=== PATIENT | male | born 1965 | race Two or more races ===

== ENCOUNTER 2017-12-09 11:06 | Inpatient (IN) | payer OTHER ==
[~2017-12-09] VITALS: Ht 167.6 cm; Wt 115.0 kg
[2017-12-09] MEDS ORDERED: SODIUM CHLORIDE 0.9% 1,000 ML IV ONE (11:32)
[2017-12-09] MEDS ORDERED: ONDANSETRON 2MG/ML, 2ML ONE ×2 (11:43→15:02)
[2017-12-09] MEDS ORDERED: HYDROmorphone 2 MG/ML, 1ML ONE ×5 (11:43→16:13)
[2017-12-09] MEDS: HYDROmorphone 1 MG/ML, 1ML IVPush PRN ×4 (11:49→16:13)
[2017-12-09 11:56] LABS: BASOPHILS # (AUTO) 0.03 x10^3/uL (0-0.1); BASOPHILS % (AUTO) 0 % (0-1); EOSINOPHILS # (AUTO) 0.02 x10^3/uL (0-0.4); EOSINOPHILS % (AUTO) 0 % (1-7); LYMPHOCYTES # (AUTO) 0.97 x10^3/uL (1-3.4); LYMPHOCYTES % (AUTO) 6 % (22-44); MD NO; MEAN CORPUSCULAR HEMOGLOBIN 33.9 pg (27.5-34.5); MEAN CORPUSCULAR HGB CONC 34.3 g/dL (33.2-36.2); MEAN CORPUSCULAR VOLUME 98.9 fL (81-97); MEAN PLATELET VOLUME 10.2 fL (7.4-10.4); MONOCYTES # (AUTO) 1.16 x10^3/uL (0.2-0.8); MONOCYTES % (AUTO) 7 % (2-9); NEUTROPHILS # (AUTO) 15.07 x10^3/uL (1.8-6.8); NEUTROPHILS % (AUTO) 87 % (42-75); PLATELET COUNT 154 x10^3/uL (130-400); RED BLOOD COUNT 4.93 x10^6/uL (4.38-5.82)
[2017-12-09] MEDS ORDERED: SODIUM CHLORIDE FLUSH 10ML SYR IVF ONE (12:00)
[2017-12-09] MEDS ORDERED: SODIUM CHLORIDE 0.9% 1,000ML IVBOLUS ONE (12:00)
[2017-12-09] MEDS ORDERED: ONDANSETRON 2MG/ML, 2ML IVPush ONE ×2 (12:00→15:30)
[2017-12-09 12:10] LABS: ALANINE AMINOTRANSFERASE 35 U/L (12-78); ALBUMIN 3.8 g/dL (3.4-5.0); ANION GAP 4 mmol/L (5-15); CALCIUM 8.6 mg/dL (8.5-10.1); CHLORIDE 104 mmol/L (98-107); CREATININE 1.01 mg/dL (0.7-1.3)
[2017-12-09 12:12] LABS: ALKALINE PHOSPHATASE 77 U/L (45-117); BILIRUBIN,TOTAL 1.3 mg/dL (0.2-1.0); TOTAL PROTEIN 7.7 g/dL (6.4-8.2)
[2017-12-09 13:05] LABS: MICROSCOPIC NOT IND
[2017-12-09 13:08] LABS: CULTURE INDICATED? NO
[2017-12-09] MEDS ORDERED: OMNIPAQUE 350 MG/ML, 100ML BOTTLE ONE (14:50)
[2017-12-09] MEDS ORDERED: METRONIDAZOLE PMX 500MG/100ML 0 ML ONE (15:15)
[2017-12-09] MEDS ORDERED: METRONIDAZOLE PMX 500MG/100ML 100 ML IV ONE (15:30)
[2017-12-09] MEDS ORDERED: AMPICILLIN/SULBACTAM 3 GM in SODIUM CHLORIDE 0.9% 100 ML IV ONE (15:30)
[2017-12-09 16:44] VITALS: BP 124/75
[2017-12-09] MEDS: KETOROLAC 30 MG/1 ML IVPush PRN (17:29)
[2017-12-09] MEDS: D5%-LACTATED RINGERS 1,000 ML IV SCH (17:29)
[2017-12-09 20:20] VITALS: BP 121/73
[2017-12-09] MEDS ORDERED: FAMOTIDINE 20 MG TABLET PO SCH (21:00)
[2017-12-09] MEDS: FAMOTIDINE 20 MG/2 ML IVPush SCH (22:01)
[2017-12-09] MEDS: PIPERACILLIN/TAZO/PMX 4.5GM 100 ML IV SCH (22:47)
[2017-12-09] MEDS: METRONIDAZOLE PMX 500MG/100ML 100 ML IV SCH (23:54)
[2017-12-10 01:19] VITALS: BP 117/57
[2017-12-10] MEDS: KETOROLAC 30 MG/1 ML IVPush PRN ×3 (04:30→18:13)
[2017-12-10 05:50] LABS: ANION GAP 8 mmol/L (5-15); CALCIUM 7.6 mg/dL (8.5-10.1); CHLORIDE 108 mmol/L (98-107)
[2017-12-10 05:51] LABS: CREATININE 0.96 mg/dL (0.7-1.3)
[2017-12-10 06:05] LABS: BASOPHILS % (AUTO) 0 % (0-1); EOSINOPHILS # (AUTO) 0.03 x10^3/uL (0-0.4); EOSINOPHILS % (AUTO) 0 % (1-7); LYMPHOCYTES # (AUTO) 1.07 x10^3/uL (1-3.4); LYMPHOCYTES % (AUTO) 8 % (22-44); MD NO; MEAN CORPUSCULAR HEMOGLOBIN 33.9 pg (27.5-34.5); MEAN CORPUSCULAR HGB CONC 34.4 g/dL (33.2-36.2); MEAN CORPUSCULAR VOLUME 98.7 fL (81-97); MEAN PLATELET VOLUME 10.4 fL (7.4-10.4); MONOCYTES # (AUTO) 0.88 x10^3/uL (0.2-0.8); MONOCYTES % (AUTO) 7 % (2-9); NEUTROPHILS # (AUTO) 10.97 x10^3/uL (1.8-6.8); NEUTROPHILS % (AUTO) 85 % (42-75); PLATELET COUNT 132 x10^3/uL (130-400); RED BLOOD COUNT 4.25 x10^6/uL (4.38-5.82); RED CELL DISTRIBUTION WIDTH 12.9 % (9.4-14.8)
[2017-12-10] MEDS: PIPERACILLIN/TAZO/PMX 4.5GM 100 ML IV SCH ×3 (06:36→18:13)
[2017-12-10] MEDS: D5%-LACTATED RINGERS 1,000 ML IV SCH (06:39)
[2017-12-10 07:43] VITALS: BP 116/75
[2017-12-10] MEDS: METRONIDAZOLE PMX 500MG/100ML 100 ML IV SCH ×3 (07:53→23:52)
[2017-12-10] MEDS: FAMOTIDINE 20 MG/2 ML IVPush SCH ×2 (07:53→21:52)
[2017-12-10 13:29] VITALS: BP 102/65
[2017-12-10] MEDS ORDERED: ONDANSETRON 2MG/ML, 2ML IVPush PRN (19:30)
[2017-12-10 19:48] VITALS: BP 104/70
[2017-12-10] MEDS: ACETAMINOPHEN 500 MG TABLET PO SCH (21:52)
[2017-12-10] MEDS: LACTATED RINGERS 1,000 ML IV SCH (21:55)
[2017-12-11] MEDS: PIPERACILLIN/TAZO/PMX 4.5GM 100 ML IV SCH ×4 (01:07→18:10)
[2017-12-11 02:15] VITALS: BP 106/68
[2017-12-11] MEDS: ACETAMINOPHEN 500 MG TABLET PO SCH ×3 (05:29→22:16)
[2017-12-11] MEDS: KETOROLAC 30 MG/1 ML IVPush PRN (06:13)
[2017-12-11] MEDS: METRONIDAZOLE PMX 500MG/100ML 100 ML IV SCH ×3 (07:53→23:49)
[2017-12-11 08:38] VITALS: BP 124/92
[2017-12-11 14:21] VITALS: BP 112/71
[2017-12-11 19:54] VITALS: BP 128/85
[2017-12-11] MEDS: LACTATED RINGERS 1,000 ML IV SCH (22:17)
[2017-12-12] MEDS: PIPERACILLIN/TAZO/PMX 4.5GM 100 ML IV SCH ×3 (01:03→12:30)
[2017-12-12 01:36] VITALS: BP 99/62
[2017-12-12] MEDS: ACETAMINOPHEN 500 MG TABLET PO SCH (06:13)
[2017-12-12] MEDS ORDERED: ACET500T71 PO (06:38)
[2017-12-12] MEDS ORDERED: IBUP-1223 PO (06:38)
[2017-12-12] MEDS ORDERED: CIPR250T27 PO (06:38)
[2017-12-12] MEDS ORDERED: METR500T PO (06:38)
[2017-12-12] MEDS: METRONIDAZOLE PMX 500MG/100ML 100 ML IV SCH (07:49)
[2017-12-12 07:57] LABS: BASOPHILS # (AUTO) 0.01 x10^3/uL (0-0.1); BASOPHILS % (AUTO) 0 % (0-1); EOSINOPHILS # (AUTO) 0.19 x10^3/uL (0-0.4); EOSINOPHILS % (AUTO) 3 % (1-7); LYMPHOCYTES # (AUTO) 1.12 x10^3/uL (1-3.4); LYMPHOCYTES % (AUTO) 19 % (22-44); MD NO; MEAN CORPUSCULAR HEMOGLOBIN 33.6 pg (27.5-34.5); MEAN CORPUSCULAR HGB CONC 33.9 g/dL (33.2-36.2); MEAN CORPUSCULAR VOLUME 99.3 fL (81-97); MEAN PLATELET VOLUME 10.1 fL (7.4-10.4); MONOCYTES # (AUTO) 0.37 x10^3/uL (0.2-0.8); MONOCYTES % (AUTO) 6 % (2-9); NEUTROPHILS # (AUTO) 4.21 x10^3/uL (1.8-6.8); NEUTROPHILS % (AUTO) 71 % (42-75); PLATELET COUNT 180 x10^3/uL (130-400); RED BLOOD COUNT 4.42 x10^6/uL (4.38-5.82); RED CELL DISTRIBUTION WIDTH 12.4 % (9.4-14.8)
[2017-12-12 08:07] LABS: ANION GAP 5 mmol/L (5-15); CALCIUM 8.4 mg/dL (8.5-10.1); CHLORIDE 107 mmol/L (98-107)
[2017-12-12 08:38] VITALS: BP 118/81
[2017-12-12 13:07] VITALS: BP 125/86
== END 2017-12-12 13:23 | disposition home or self-care (01) | DRG 389 ==
LOC: ED 15:14 → EDIP 15:15 → ED 15:57 → 3NE 16:39 → DCLOUNGE 12-12 13:15
PROVIDERS: ADMIT Internal Medicine; ATTEND Internal Medicine
DX: K56.609 Unspecified intestinal obstruction, unspecified as to partial versus complete obstruction (principal); K57.32 Diverticulitis of large intestine without perforation or abscess without bleeding; Z68.41 Body mass index [BMI] 40.0-44.9, adult; E66.9 Obesity, unspecified; Z90.49 Acquired absence of other specified parts of digestive tract
CPT/HCPCS: 36415; 74022; 74177; 80048; 80053; 81003; 83605; 83690; 83735; 85025; 87040; 93005; 96361; 96365; 96375; 96376; J0295; J1170; J1885; J2405; J2543; Q9967; J7030; J7120; J7121; S0028

== ENCOUNTER 2020-07-31 01:03 | Emergency (ER) | payer OTHER ==
[~2020-07-31] VITALS: Ht 167.6 cm; Wt 110.0 kg
[~2020-07-31 01:03] MED LIST: ACET500T64 PO; CIPR250T27 PO; IBUP-1223 PO; METR500T PO
--- NOTE | 2020-07-31 01:33 | NUR ---
PT TO ED WITH CP STARTING AT 2300 TONIGHT, PT REPORTS SOB, CHEST PRESSURE, LEFT ARM RADIAITON AND UPPER BACK PAIN. PT ALSO REPORTS "LUNG PAIN" X2 WEEKS WITH OCCASIONAL WEAK COUGH AND DIZZINESS. PT CONNECTED TO ALL MONITORING, CALL LIGHT WITHIN REACH, ALL SAFETY MEASURES IN PLACE, FAMILY AT BS FOR SUPPORT.
[2020-07-31] MEDS ORDERED: MORPHINE SULFATE 4 MG/ML, 1ML ONE (01:51)
[2020-07-31] MEDS ORDERED: ASPIRIN 81 MG TABLET CHEW ONE (01:51)
[2020-07-31] MEDS ORDERED: ONDANSETRON 2MG/ML, 2ML ONE (01:51)
[2020-07-31] MEDS ORDERED: ASPIRIN 81 MG TABLET CHEW PO ONE (02:00)
[2020-07-31] MEDS ORDERED: ONDANSETRON 2MG/ML, 2ML IVPush ONE (02:00)
[2020-07-31] MEDS ORDERED: MORPHINE SULFATE 4 MG/ML, 1ML IVPush PRN (02:00)
--- NOTE | 2020-07-31 02:03 | NUR ---
IV PLACED, PT MEDICATED PER MAR, LABS DRAWN AND SENT TO LAB.
[2020-07-31 02:08] LABS: MEAN CORPUSCULAR HEMOGLOBIN 33.5 pg (27.5-34.5); MEAN CORPUSCULAR HGB CONC 33.5 g/dL (33.2-36.2); MEAN CORPUSCULAR VOLUME 100.2 fL (81-97); MEAN PLATELET VOLUME 10.1 fL (7.4-10.4); PLATELET COUNT 166 x10^3/uL (130-400); RED BLOOD COUNT 4.72 x10^6/uL (4.38-5.82); RED CELL DISTRIBUTION WIDTH 12.9 % (9.4-14.8)
[2020-07-31 02:18] LABS: ALANINE AMINOTRANSFERASE 36 U/L (12-78); ALBUMIN 3.7 g/dL (3.4-5.0); ANION GAP 4 mmol/L (5-15); CALCIUM 8.4 mg/dL (8.5-10.1); CHLORIDE 110 mmol/L (98-107); CREATININE 1.12 mg/dL (0.7-1.3)
[2020-07-31 02:22] LABS: ALKALINE PHOSPHATASE 98 U/L (45-117); BILIRUBIN,TOTAL 0.7 mg/dL (0.2-1.0); TOTAL PROTEIN 7.3 g/dL (6.4-8.2); TROPONIN I < 0.015 ng/mL (0.000-0.045)
[2020-07-31 02:59] LABS: MD YES
[2020-07-31 03:03] LABS: BAND#(MANUAL) 0.54 x10^3/uL; BANDS%(MANUAL) 4 % (0-7); BASOS#(MANUAL) 0.27 x10^3/uL (0-0.1); BASOS% (MANUAL) 2 % (0-1); LYMPH#(MANUAL) 0.81 x10^3/uL (1-3.4); LYMPHS% (MANUAL) 6 % (22-44); MONOS#(MANUAL) 1.08 x10^3/uL (0.3-2.7); MONOS% (MANUAL) 8 % (2-9); SEGS% (MANUAL) 80 % (42-75)
[2020-07-31 03:05] LABS: <PLATELET ESTIMATE> ADEQUATE; <PLT MORPHOLOGY> NORMAL PLT MORPH
[2020-07-31 03:22] VITALS: BP 125/76
--- NOTE | 2020-07-31 03:23 | NUR ---
PT REPORTS DECREASED PAIN, UPDATED ON POC, MONITORING IN PLACE, CALL LIGHT WITHIN REACH.
== END 2020-07-31 03:46 | disposition home or self-care (01) ==
LOC: ED 01:37
DX: R06.02 Shortness of breath (principal); R07.89 Other chest pain; R94.31 Abnormal electrocardiogram [ECG] [EKG]; Z90.89 Acquired absence of other organs
CPT/HCPCS: 36415; 71045; 80053; 84484; 85025; 85379; 93005; 96374; 96375; 99285; J2270; J2405